=== PATIENT | male | born 1965 | race Caucasian/White ===

== ENCOUNTER 2017-11-20 08:16 | Day surgery (SDC) | payer BC, OTHER ==
[2017-11-20] MEDS ORDERED: Lactated Ringers 1,000 ML IV SCH (08:30)
[2017-11-20] MEDS ORDERED: Midazolam 1 MG/ML 2 ML SDV IV ONE (10:30)
[2017-11-20] MEDS ORDERED: Ondansetron 4 MG/2 ML SDV IVPUSH ONE (10:30)
[2017-11-20] MEDS ORDERED: Lactated Ringers 1,000 ML IV ONE (10:30)
[2017-11-20] MEDS ORDERED: Propofol 200 MG/20 ML SDV IV ONE (10:30)
[2017-11-20] MEDS ORDERED: Simethicone Drops 40 MG/0.6 ML 30 ML Bottle ONE (10:40)
--- NOTE | 2017-11-20 11:06 | PCM.OPNOTE ---
- General Post-Op/Procedure Note Date of Surgery/Procedure: 11/20/17 Operative Procedure(s): c scope with bx Findings: hyperplastic rectal polyp Pre Op Diagnosis: hx of polyps Post-Op Diagnosis: hyperplastic rectal polyp Anesthesia Technique: MAC Primary Surgeon: Edwardo Han Anesthesia Provider: Leia Parra Pathology: hyperplastic rectal polyp Complications: None Condition: Good Free Text/Narrative:: see dictation
--- NOTE | 2017-11-20 13:14 | OR ---
DATE OF OPERATION: 11/20/2017 SURGEON: Edwardo Han MD PROCEDURE PERFORMED: Colonoscopy with biopsy. PREOPERATIVE DIAGNOSIS: Personal history of colon polyps. POSTOPERATIVE DIAGNOSIS: Rectal polyp, hyperplastic. INDICATIONS FOR PROCEDURE: This is a 52-year-old white male who presents for a followup colonoscopy. He was offered and accepted the same. DESCRIPTION OF OPERATION: After an excellent IV sedation was administered, digital rectal exam was performed. No marked abnormality was noted. Flexible colonoscope was inserted and advanced without difficulty to the cecum. The prep was excellent. The following findings were noted. Ascending colon, unremarkable. Transverse colon, unremarkable. Descending colon, unremarkable. Sigmoid, unremarkable. Rectum, a small hyperplastic appearing polyp biopsied and sent for permanent. Colon was deflated. Scope was removed. The patient tolerated the procedure well, and was taken to recovery in good condition. /[id number] /ROYAL
== END 2017-11-20 12:19 | disposition home or self-care (01) ==
LOC: FB.SDS 08:16
PROVIDERS: ATTEND Surgery
DX: Z12.11 Encounter for screening for malignant neoplasm of colon (principal); K62.1 Rectal polyp; E78.5 Hyperlipidemia, unspecified; Z87.891 Personal history of nicotine dependence; Z86.010 Personal history of colon polyps; Z79.82 Long term (current) use of aspirin; Z98.890 Other specified postprocedural states
CPT/HCPCS: 45380; 88305; A9270; J2250; J2405; J2704; J7120